=== PATIENT | female | born 1935 | race Two or more races ===

== ENCOUNTER 2018-03-16 12:55 | Inpatient (IN) | payer MEDICARE, MEDICAID ==
[~2018-03-16] VITALS: Ht 152.4 cm; Wt 77.2 kg
[2018-03-16 13:31] LABS: Basophils # (auto) 0 uL; Basophils % (auto) 0.5 % (0.0-2.0); Eosinophils # (auto) 0 uL; Eosinophils % (auto) 0.5 % (0.0-7.0); Hematocrit 43.5 % (36.0-46.0); Lymphocytes # (auto) 1.2 uL; Lymphocytes % (auto) 14.4 % (10.0-50.0); Mean Corpuscular Hemoglobin 30.4 pg (28.0-32.0); Mean Corpuscular Hgb Conc. 32.3 g/dL (32.0-36.0); Mean Corpuscular Volume 94.1 fL (80.0-100.0); Monocytes # (auto) 0.5 uL; Monocytes % (auto) 6.2 % (0.0-12.0); Neutrophils # (auto) 6.7 uL; Neutrophils % (auto) 78.4 % (37.0-80.0); Platelet Count (auto) 273 10^3/uL (140-450); Red Blood Cells 4.62 10^6/uL (4.0-5.20); Red Cell Distribution Width 12.8 % (11.8-14.3); White Blood Cell 8.5 10^3/uL (4.4-10.8)
[2018-03-16 13:47] LABS: Alanine Aminotransferase 25 U/L (13-56); Albumin 3.6 g/dL (3.4-5.0); Anion Gap 6 (5-15); Aspartate Aminotransferase 24 U/L (15-37); BUN/Creatinine Ratio 18.1; Blood Urea Nitrogen 17 mg/dL (7-18); Calcium 8.4 mg/dL (8.5-10.1); Carbon Dioxide 26 mmol/L (21-32); Chloride 105 mmol/L (98-107); GFR African American 73 mL/min; GFR Non-African American 60 mL/min; Glucose 123 mg/dL (74-106); INR 0.98 (0.9-1.15); Partial Thromboplastin Time 25.7 sec (23.78-33.04); Potassium 3.7 mmol/L (3.5-5.1); Prothrombin Time 10.5 sec (9.27-12.13); Sodium 137 mmol/L (136-145)
[2018-03-16 13:52] LABS: Alkaline Phosphatase 61 U/L (45-117); Bilirubin, Total 0.3 mg/dL (0.2-1.0); Total Protein 7.7 g/dL (6.4-8.2)
[2018-03-16] MEDS ORDERED: MORPHINE SULFATE 4 MG/ML SYR/VIAL IV PRN (15:00)
[2018-03-16] MEDS ORDERED: NITROGLYCERIN 0.4 MG SL TAB SL PRN (15:00)
[2018-03-16] MEDS ORDERED: LORazepam 0.5 MG TAB PO PRN (15:00)
[2018-03-16] MEDS ORDERED: ONDANSETRON HCL 4 MG/2 ML VIAL IV PRN (15:00)
[2018-03-16] MEDS ORDERED: TEMAZEPAM 15 MG CAP PO PRN (15:00)
[2018-03-16] MEDS: SODIUM CHLORIDE 0.9% 1,000 ML IV SCH ×2 (15:18→22:25)
[2018-03-16] MEDS: HYDROcodone-ACET 5/325MG TAB PO PRN (17:30)
[2018-03-16 17:48] LABS: Urine Bacteria FEW /hpf (None Seen); Urine Blood Negative /uL (Negative); Urine Specific Gravity 1.011 (1.001-1.035); Urine WBC 15 /hpf (0 - 5)
[2018-03-16] MEDS ORDERED: cefTRIAXone 1GM/50ML D5W 50 ML IV ONE (18:45)
[2018-03-16 20:05] VITALS: BP 127/69
[2018-03-16] MEDS: MORPHINE SULFATE 4 MG/ML SYR/VIAL IV PRN (21:10)
[2018-03-16] MEDS ORDERED: ISOS20TA49 PO (22:10)
[2018-03-17] MEDS: MORPHINE SULFATE 4 MG/ML SYR/VIAL IV PRN (04:25)
[2018-03-17 05:29] VITALS: BP 150/79
[2018-03-17 08:00] VITALS: BP 143/83
[2018-03-17] MEDS ORDERED: cefTRIAXone 1GM/50ML D5W 50 ML IV SCH (09:00)
[2018-03-17] MEDS: SODIUM CHLORIDE 0.9% 1,000 ML IV SCH ×2 (10:26→20:51)
[2018-03-17] MEDS ORDERED: ISO60SRT PO (10:31)
[2018-03-17 12:00] VITALS: BP 149/75
[2018-03-17] MEDS ORDERED: ePHEDrine SULFATE 50 MG/ML AMP ONE (14:55)
[2018-03-17] MEDS ORDERED: MIDAZOLAM HCL 1MG/1ML-2 ML VIAL ONE (14:55)
[2018-03-17] MEDS ORDERED: ONDANSETRON HCL 4 MG/2 ML VIAL ONE (14:55)
[2018-03-17] MEDS ORDERED: fentaNYL CITRATE 100 MCG/2 ML VL ONE (14:55)
[2018-03-17] MEDS ORDERED: MORPHINE SULF(PF) 0.5MG/ML 10ML VIAL ONE (14:55)
[2018-03-17] MEDS ORDERED: PROPOFOL 10 MG/ML 20 ML IV ONE (14:55)
[2018-03-17] MEDS ORDERED: SODIUM CHLORIDE LOCK 20 ML ONE (14:55)
[2018-03-17] MEDS ORDERED: ceFAZolin 1GM/50ML 50 ML IV ONE ×2 (15:30→16:05)
[2018-03-17 16:00] VITALS: BP 157/80
[2018-03-17] MEDS ORDERED: TETRACAINE 1% INJ 2 ML VIAL IJ ONE (16:05)
[2018-03-17] MEDS ORDERED: HYDROmorphone HCL 2 MG/ML VL IV PRN ×2 (17:30→18:45)
[2018-03-17] MEDS ORDERED: METOCLOPRAMIDE HCL 5MG/ml INJ 2ml VIAL IV ONE (17:30)
[2018-03-17] MEDS ORDERED: NALOXONE HCL 0.4 MG/ML VIAL IV PRN (17:30)
[2018-03-17] MEDS ORDERED: diphenhdrAMINE HCL 50 MG/1 ML VL IV PRN (17:30)
[2018-03-17] MEDS ORDERED: KETOROLAC TROMETH 30 MG/ML 1ML VIAL IV ONE (17:30)
[2018-03-17 21:36] VITALS: BP 124/65
[2018-03-17] MEDS: ceFAZolin 1GM/50ML 50 ML IV SCH (22:03)
[2018-03-18] MEDS: ACETAMINOPHEN 500 MG TAB PO PRN ×3 (04:25→22:36)
[2018-03-18 05:00] VITALS: BP 135/92
[2018-03-18 05:20] LABS: Basophils # (auto) 0 uL; Basophils % (auto) 0.2 % (0.0-2.0); Eosinophils # (auto) 0.1 uL; Eosinophils % (auto) 0.7 % (0.0-7.0); Hemoglobin 13.1 g/dL (12.2-16.2); Lymphocytes # (auto) 1.7 uL; Lymphocytes % (auto) 18.5 % (10.0-50.0); Mean Corpuscular Hemoglobin 31.7 pg (28.0-32.0); Mean Corpuscular Hgb Conc. 33.6 g/dL (32.0-36.0); Mean Corpuscular Volume 94.4 fL (80.0-100.0); Monocytes % (auto) 10.9 % (0.0-12.0); Neutrophils # (auto) 6.2 uL; Neutrophils % (auto) 69.7 % (37.0-80.0); Platelet Count (auto) 207 10^3/uL (140-450); Red Blood Cells 4.14 10^6/uL (4.0-5.20); Red Cell Distribution Width 12.7 % (11.8-14.3)
[2018-03-18 05:43] LABS: Calcium 7.9 mg/dL (8.5-10.1); Potassium 3.8 mmol/L (3.5-5.1)
[2018-03-18] MEDS: ceFAZolin 1GM/50ML 50 ML IV SCH ×3 (05:45→21:39)
[2018-03-18 05:47] LABS: BUN/Creatinine Ratio 13.6
[2018-03-18] MEDS: SODIUM CHLORIDE 0.9% 1,000 ML IV SCH ×2 (05:50→16:59)
[2018-03-18 09:00] VITALS: BP 139/70
[2018-03-18] MEDS: HYDROcodone-ACET 5/325MG TAB PO PRN ×2 (09:56→20:44)
[2018-03-18 13:00] VITALS: BP 142/76
[2018-03-18] MEDS: ENOXAPARIN SOD 40 MG/0.4 ML SYRINGE SC SCH (16:07)
[2018-03-18 17:00] VITALS: BP 162/92
[2018-03-18 21:50] VITALS: BP 114/61
[2018-03-19] MEDS: SODIUM CHLORIDE 0.9% 1,000 ML IV SCH ×3 (02:59→22:59)
[2018-03-19 05:00] VITALS: BP 132/64
[2018-03-19] MEDS: HYDROcodone-ACET 5/325MG TAB PO PRN (05:04)
[2018-03-19] MEDS: ceFAZolin 1GM/50ML 50 ML IV SCH ×3 (07:21→21:34)
[2018-03-19 08:00] VITALS: BP 139/79
[2018-03-19] MEDS: CHOLECALCIFEROL (VITD3) 1,000 UNIT TAB PO SCH (10:43)
[2018-03-19] MEDS: LEVOFLOXACIN 500MG 100 ML IV SCH (10:43)
[2018-03-19] MEDS: ENOXAPARIN SOD 40 MG/0.4 ML SYRINGE SC SCH (10:43)
[2018-03-19 13:32] VITALS: BP 131/69
[2018-03-19] MEDS: ACETAMINOPHEN 500 MG TAB PO PRN (14:48)
[2018-03-19 16:15] VITALS: BP 132/67
[2018-03-20 05:00] VITALS: BP 118/68
[2018-03-20] MEDS: ceFAZolin 1GM/50ML 50 ML IV SCH (05:33)
[2018-03-20 09:00] VITALS: BP 129/58
[2018-03-20] MEDS: CHOLECALCIFEROL (VITD3) 1,000 UNIT TAB PO SCH (09:28)
[2018-03-20] MEDS: ENOXAPARIN SOD 40 MG/0.4 ML SYRINGE SC SCH (09:29)
[2018-03-20] MEDS: LEVOFLOXACIN 500MG 100 ML IV SCH (09:29)
[2018-03-20] MEDS: SODIUM CHLORIDE 0.9% 1,000 ML IV SCH ×2 (09:31→11:45)
[2018-03-20] MEDS ORDERED: cefTRIAXone 1GM/50ML D5W 50 ML IV ONE (11:45)
[2018-03-20] MEDS ORDERED: HYDROmorphone HCL 2 MG/ML VL IV PRN (11:45)
[2018-03-20 14:35] VITALS: BP 132/68
[2018-03-20] MEDS: HYDROcodone-ACET 5/325MG TAB PO PRN (15:51)
[2018-03-20 17:00] VITALS: BP 141/71
[2018-03-20 21:38] VITALS: BP 151/70
[2018-03-21] MEDS: SODIUM CHLORIDE 0.9% 1,000 ML IV SCH (04:25)
[2018-03-21 05:18] VITALS: BP 160/71
[2018-03-21 06:55] LABS: Basophils # (auto) 0 uL; Basophils % (auto) 0.6 % (0.0-2.0); Eosinophils # (auto) 0.3 uL; Eosinophils % (auto) 4.8 % (0.0-7.0); Hematocrit 36.5 % (36.0-46.0); Hemoglobin 12.2 g/dL (12.2-16.2); Lymphocytes # (auto) 1.9 uL; Lymphocytes % (auto) 29.6 % (10.0-50.0); Mean Corpuscular Hemoglobin 31.1 pg (28.0-32.0); Mean Corpuscular Hgb Conc. 33.4 g/dL (32.0-36.0); Mean Corpuscular Volume 93.2 fL (80.0-100.0); Monocytes # (auto) 0.7 uL; Monocytes % (auto) 10.2 % (0.0-12.0); Neutrophils # (auto) 3.6 uL; Neutrophils % (auto) 54.8 % (37.0-80.0); Platelet Count (auto) 254 10^3/uL (140-450); Red Blood Cells 3.91 10^6/uL (4.0-5.20); Red Cell Distribution Width 12.4 % (11.8-14.3); White Blood Cell 6.5 10^3/uL (4.4-10.8)
[2018-03-21 07:04] LABS: BUN/Creatinine Ratio 16.1; Calcium 8.2 mg/dL (8.5-10.1); Potassium 3.7 mmol/L (3.5-5.1)
[2018-03-21 08:30] VITALS: BP 140/79
[2018-03-21] MEDS ORDERED: cefTRIAXone 1GM/50ML D5W 50 ML IV SCH (09:00)
[2018-03-21] MEDS: CHOLECALCIFEROL (VITD3) 1,000 UNIT TAB PO SCH (10:29)
[2018-03-21] MEDS: ENOXAPARIN SOD 40 MG/0.4 ML SYRINGE SC SCH (10:30)
[2018-03-21 12:30] VITALS: BP 102/61
[2018-03-21] MEDS ORDERED: POTASSIUM CHL 20 Meq TABLET PO ONE (12:45)
[2018-03-21] MEDS ORDERED: FUROSEMIDE 20 MG/2 ML VIAL IV ONE (12:45)
[2018-03-21 16:58] VITALS: BP 135/68
== END 2018-03-21 18:53 | DRG 854 ==
LOC: EDUNIT# 12:55 → EDBD 12:55 → ER 13:11 → TELE 14:55 → TELE-WESTW 20:05
PROVIDERS: ADMIT Internal Medicine; ATTEND Internal Medicine
PROC: 0SSG0ZZ Reposition Left Ankle Joint, Open Approach (ICD-10-PCS; 2018-03-17)
PROC: 0MQP0ZZ Repair Left Knee Bursa and Ligament, Open Approach (ICD-10-PCS; 2018-03-17)
PROC: 0QSH04Z Reposition Left Tibia with Internal Fixation Device, Open Approach (ICD-10-PCS; principal; 2018-03-17 16:12)
DX: A41.9 Sepsis, unspecified organism (principal); N39.0 Urinary tract infection, site not specified; S82.832A Other fracture of upper and lower end of left fibula, initial encounter for closed fracture; S82.872A Displaced pilon fracture of left tibia, initial encounter for closed fracture; E66.9 Obesity, unspecified; S93.432A Sprain of tibiofibular ligament of left ankle, initial encounter; R55 Syncope and collapse; I10 Essential (primary) hypertension; F03.90 Unspecified dementia, unspecified severity, without behavioral disturbance, psychotic disturbance, mood disturbance, and anxiety; I67.2 Cerebral atherosclerosis; S82.52XA Displaced fracture of medial malleolus of left tibia, initial encounter for closed fracture; W18.39XA Other fall on same level, initial encounter; Y93.89 Activity, other specified; Y92.89 Other specified places as the place of occurrence of the external cause; Z90.49 Acquired absence of other specified parts of digestive tract; Z68.33 Body mass index [BMI] 33.0-33.9, adult
CPT/HCPCS: 36415; 70450; 71045; 73590; 73600; 73610; 76001; 80048; 80053; 81001; 83880; 84484; 85025; 85610; 85730; 86850; 86900; 86901; 87040; 87086; 93005; 93306; 96361; 96365; 96375; 97110; 97116; 97163; 97530; C1713; G0378; J0690; J0696; J1956; J2250; J2405; J2704